=== PATIENT | male | born 1995 ===

== ENCOUNTER 2022-08-01 03:20 | Inpatient (IN) | payer OTHER, SELFPAY ==
[2022-08-01] MEDS ORDERED: Rocuronium Bromide 10 MG/ML (10ML VIAL) ONE ×2 (03:55→04:00)
[2022-08-01] MEDS ORDERED: Fentanyl 100 MCG/2 ML VIAL ONE (03:56)
[2022-08-01 04:05] LABS: #Eosinphils 0.1 thou/uL (0.0-0.7); #Lymphocytes 3.4 thou/uL (1.20-3.40); #Monocytes 0.6 thou/uL (0.11-0.59); #Neutrophils 5.8 thou/uL (1.40-6.50); %Basophils 0.2 % (0.0-1.0); %Eosinophils 0.5 % (0.0-10.0); %Lymphocytes 34.2 % (21.0-51.0); %Monocytes 6.2 % (0.0-10.0); %Neutrophils 58.9 % (42.0-75.0); Hemoglobin 14.5 g/dL (14.0-18.0); Mean Corpuscular HGB CONC 33.9 g/dL (32.0-36.0); Mean Corpuscular Hemoglobin 29.1 pg (27.0-31.0); Mean Corpuscular Volume 85.8 fL (78.0-98.0); Mean Platelet Volume 8.4 fL (7.4-10.4); Platelet Count 213 thou/uL (130-400); RBC Distribution Width 11.7 % (11.5-14.5); Red Blood Cell (RBC) Count 4.98 mill/uL (4.70-6.10); White Blood Cell (WBC) Count 9.8 thou/uL (4.8-10.8)
[2022-08-01] MEDS ORDERED: Fentanyl CADD 100 ML IV SCH ×2 (04:15→06:00)
[2022-08-01 04:25] LABS: Acetaminophen Less than 10.0 mcg/mL (10.0-30.0); Alcohol 248 mg/dL (Less than 10); Salicylate Less than 8.0 mg/dL (15.0-30.0)
[2022-08-01 04:26] LABS: ALT (SGPT) 24 U/L (8-55); AST (SGOT) 31 U/L (5-34); Albumin 3.9 g/dL (3.5-5.0); Alkaline Phosphatase 75 U/L (40-110); Anion Gap 15 mmol/L (10-20); BUN (Urea Nitrogen) 12 mg/dL (8.9-20.6); Bilirubin, Total 0.8 mg/dL (0.2-1.2); Calc. Creatinine Clearance 0 mL/min (70-130); Calcium 7.8 mg/dL (7.8-10.44); Carbon Dioxide 20 mmol/L (22-29); Chloride 111 mmol/L (98-107); Estimated GFR 124; Globulin 2.6 g/dL (2.4-3.5); Glucose 132 mg/dL (70-105); Potassium 3.4 mmol/L (3.5-5.1); Protein, Total 6.5 g/dL (6.0-8.3); Sodium 143 mmol/L (136-145)
[2022-08-01 04:40] LABS: Actual Bicarbonate (HCO3a) 17.8 mEq/L (22-28); Analyzer IN Cardio ER; Base Excess (BEa) -6.2 mEq/L (-2.0 to +3.0); CO2 Tension 31.8 mmHg (35.0-45.0); Calcium, Ionized (arterial) 1.04 mmol/L (1.12-1.30); Carboxyhemoglobin (COHb) 0.3 gm% (0.0-3.0); Hemoglobin (Hb) 15.1 g/dL (14.0-18.0); O2 Tension (PaO2), arterial 316.5 mmHg (80.0-100.0); Potassium - ABG Lab 3.92 mmol/L (3.70-5.30); pH, Arterial 7.37 (7.35-7.45)
[2022-08-01 04:52] LABS: Puncture Site LRA
[2022-08-01] MEDS ORDERED: Acetaminophen 650 MG Suppository PR PRN (05:43)
[2022-08-01] MEDS ORDERED: Ondansetron PF 4 MG/2 ML Vial IVP PRN (05:43)
[2022-08-01] MEDS ORDERED: Ondansetron ODT 4 MG TAB PO PRN (05:43)
[2022-08-01] MEDS ORDERED: Acetaminophen 325 MG TAB PO PRN (05:43)
[2022-08-01] MEDS ORDERED: Ventilator Sedation Protocol 1 EACH FS SCH (05:45)
[2022-08-01] MEDS ORDERED: Midazolam HCl 2 mg/2 ml Vial SLOW IVP PRN (05:55)
[2022-08-01] MEDS ORDERED: Morphine 4 MG/ML VIAL SLOW IVP PRN (06:00)
[2022-08-01] MEDS ORDERED: Propofol 1,000 MG/100 ML VIAL IV PRN (06:00)
[2022-08-01] MEDS ORDERED: Fentanyl BOLUS 250 ML IVPB PRN (06:00)
[2022-08-01] MEDS ORDERED: Propofol BOLUS 1,000 MG/100 ML VIAL IV PRN (06:00)
[2022-08-01] MEDS ORDERED: DISCONTINUE PREVIOUS NARCOTIC PAIN MEDICATIONS AND BENZODIAZEPINES FS SCH (06:00)
[2022-08-01] MEDS ORDERED: Propofol 1,000 MG/100 ML VIAL IV ONE (06:18)
[2022-08-01] MEDS ORDERED: Electrolyte Replacement Protocol 1 EACH FS SCH (06:30)
[2022-08-01 06:41] LABS: SARS-CoV-2 NAA Rapid Test Not Detected (NotDetected)
[2022-08-01] MEDS ORDERED: Sodium Chloride 0.9% 1,000 ML IV SCH (06:45)
[2022-08-01 06:48] VITALS: TEMP 97.9
[2022-08-01 07:12] LABS: Phosphorus 1.7 mg/dL (2.3-4.7)
[2022-08-01 07:14] LABS: Anion Gap 14 mmol/L (10-20); BUN (Urea Nitrogen) 10 mg/dL (8.9-20.6); Calc. Creatinine Clearance 0 mL/min (70-130); Calcium 7.7 mg/dL (7.8-10.44); Carbon Dioxide 23 mmol/L (22-29); Chloride 109 mmol/L (98-107); Estimated GFR 125; Glucose 124 mg/dL (70-105); Potassium 3.8 mmol/L (3.5-5.1); Sodium 142 mmol/L (136-145)
[2022-08-01 07:32] VITALS: BMI 28.4
[2022-08-01] MEDS ORDERED: Potassium Chloride 20 MEQ in Premix Bag 1 BAG IVPB SCH (08:00)
[2022-08-01] MEDS ORDERED: Magnesium 2 GM/50 ML(in water) 2 GM in Premix Bag 1 BAG IVPB SCH (08:00)
[2022-08-01] MEDS ORDERED: Potassium Phosphate 15 MMOL in Sodium Chloride 0.9% 100 ML IVPB SCH (09:00)
[2022-08-01] MEDS ORDERED: Enoxaparin Sodium 40 MG/0.4 ML SYRINGE SC SCH (09:00)
== END 2022-08-01 11:53 | disposition home or self-care (01) | DRG 917 ==
LOC: ERS 03:20 → CCU 05:15
PROVIDERS: ADMIT Student in an Organized Health Care Education/Training Program; ATTEND Hospitalist
PROC: 5A1935Z Respiratory Ventilation, Less than 24 Consecutive Hours (ICD-10-PCS; principal; 2022-08-01)
PROC: 0BH18EZ Insertion of Endotracheal Airway into Trachea, Via Natural or Artificial Opening Endoscopic (ICD-10-PCS; 2022-08-01)
PROC: 0D9670Z Drainage of Stomach with Drainage Device, Via Natural or Artificial Opening (ICD-10-PCS; 2022-08-01)
DX: T51.0X1A Toxic effect of ethanol, accidental (unintentional), initial encounter (principal); G93.41 Metabolic encephalopathy; J96.01 Acute respiratory failure with hypoxia; J69.0 Pneumonitis due to inhalation of food and vomit; F10.129 Alcohol abuse with intoxication, unspecified; R11.10 Vomiting, unspecified; Z20.822 Contact with and (suspected) exposure to COVID-19; S00.81XA Abrasion of other part of head, initial encounter; X58.XXXA Exposure to other specified factors, initial encounter; E87.6 Hypokalemia; Z79.2 Long term (current) use of antibiotics; Y92.89 Other specified places as the place of occurrence of the external cause
CPT/HCPCS: 31500; 36415; 36416; 36600; 51702; 70450; 71045; 80053; 80307; 82805; 83735; 84100; 85025; 94002; 96361; 96365; 96366; 96375; J1650; J2405; J2704; J3010; J3411; J3475; J3490; J7050; U0002